=== PATIENT | female | born 1950 | race Caucasian/White ===

== ENCOUNTER 2021-04-24 08:16 | Outpatient (CLI) | payer MEDICARE, MEDICAID | END 2021-04-24 08:17 | disposition home or self-care (01) | LOC: CSHWCC 08:16 | PROVIDERS: ATTEND Nurse Practitioner Family | DX: T81.89XD Other complications of procedures, not elsewhere classified, subsequent encounter (principal); T81.30XD Disruption of wound, unspecified, subsequent encounter; T81.83XD Persistent postprocedural fistula, subsequent encounter; E11.65 Type 2 diabetes mellitus with hyperglycemia; I10 Essential (primary) hypertension; Z85.3 Personal history of malignant neoplasm of breast; Z85.038 Personal history of other malignant neoplasm of large intestine | CPT/HCPCS: 11042; 99203; G0463 ==

== ENCOUNTER 2021-04-27 10:23 | Outpatient (CLI) | payer MEDICARE, MEDICAID | END 2021-04-27 10:24 | disposition home or self-care (01) | LOC: CSHWCC 10:23 | PROVIDERS: ATTEND Nurse Practitioner Family | DX: T81.89XD Other complications of procedures, not elsewhere classified, subsequent encounter (principal); T81.30XD Disruption of wound, unspecified, subsequent encounter; E11.65 Type 2 diabetes mellitus with hyperglycemia; I10 Essential (primary) hypertension; Z85.038 Personal history of other malignant neoplasm of large intestine; Z85.3 Personal history of malignant neoplasm of breast ==

== ENCOUNTER 2021-05-02 10:12 | Outpatient (CLI) | payer MEDICARE, MEDICAID | END 2021-05-02 10:13 | disposition home or self-care (01) | LOC: CSHWCC 10:12 | PROVIDERS: ATTEND Nurse Practitioner Family | DX: T81.89XD Other complications of procedures, not elsewhere classified, subsequent encounter (principal) ==

== ENCOUNTER 2021-05-04 11:22 | Outpatient (CLI) | payer MEDICARE, MEDICAID | END 2021-05-04 11:23 | disposition home or self-care (01) | LOC: CSHWCC 11:22 | PROVIDERS: ATTEND Nurse Practitioner Family | DX: T81.89XD Other complications of procedures, not elsewhere classified, subsequent encounter (principal) ==

== ENCOUNTER 2021-05-08 14:35 | Outpatient (CLI) | payer MEDICARE, MEDICAID | END 2021-05-08 14:36 | disposition home or self-care (01) | LOC: CSHWCC 14:35 | PROVIDERS: ATTEND Nurse Practitioner Family | DX: T81.89XD Other complications of procedures, not elsewhere classified, subsequent encounter (principal) | CPT/HCPCS: 97139; 97605; G0463; 99212 ==

== ENCOUNTER 2021-05-14 10:22 | Outpatient (CLI) | payer MEDICARE, MEDICAID | END 2021-05-14 10:23 | disposition home or self-care (01) | LOC: CSHWCC 10:22 | PROVIDERS: ATTEND Nurse Practitioner Family | DX: T81.89XD Other complications of procedures, not elsewhere classified, subsequent encounter (principal) | CPT/HCPCS: 11042; 97605 ==

== ENCOUNTER 2021-05-17 14:59 | Outpatient (CLI) | payer MEDICARE, MEDICAID | END 2021-05-17 15:00 | disposition home or self-care (01) | LOC: CSHWCC 14:59 | PROVIDERS: ATTEND Nurse Practitioner Family | DX: T81.89XD Other complications of procedures, not elsewhere classified, subsequent encounter (principal) | CPT/HCPCS: 97605 ==

== ENCOUNTER 2021-05-21 14:58 | Outpatient (CLI) | payer MEDICARE, MEDICAID | END 2021-05-21 14:59 | disposition home or self-care (01) | LOC: CSHWCC 14:58 | PROVIDERS: ATTEND Nurse Practitioner Family | DX: T81.89XA Other complications of procedures, not elsewhere classified, initial encounter (principal) ==

== ENCOUNTER 2021-05-24 10:43 | Outpatient (CLI) | payer MEDICARE, MEDICAID | END 2021-05-24 10:44 | disposition home or self-care (01) | LOC: CSHWCC 10:43 | PROVIDERS: ATTEND Nurse Practitioner Family | DX: T81.89XA Other complications of procedures, not elsewhere classified, initial encounter (principal) | CPT/HCPCS: 97605 ==

== ENCOUNTER 2021-05-29 13:07 | Outpatient (CLI) | payer MEDICARE, MEDICAID | END 2021-05-29 13:08 | disposition home or self-care (01) | LOC: CSHWCC 13:07 | PROVIDERS: ATTEND Nurse Practitioner Family | DX: T81.89XD Other complications of procedures, not elsewhere classified, subsequent encounter (principal) | CPT/HCPCS: 97605 ==

== ENCOUNTER 2021-06-01 09:00 | Outpatient (CLI) | payer MEDICARE, MEDICAID | END 2021-06-01 09:01 | disposition home or self-care (01) | LOC: CSHWCC 09:00 | PROVIDERS: ATTEND Nurse Practitioner Family | DX: T81.89XD Other complications of procedures, not elsewhere classified, subsequent encounter (principal) | CPT/HCPCS: 97605 ==

== ENCOUNTER 2021-06-05 12:50 | Outpatient (CLI) | payer MEDICARE, MEDICAID | END 2021-06-05 12:51 | disposition home or self-care (01) | LOC: CSHWCC 12:50 | PROVIDERS: ATTEND Nurse Practitioner Family | DX: T81.89XD Other complications of procedures, not elsewhere classified, subsequent encounter (principal) | CPT/HCPCS: 97139; 97605; G0463; 99213 ==

== ENCOUNTER 2021-06-07 08:53 | Outpatient (CLI) | payer MEDICARE, MEDICAID | END 2021-06-07 08:54 | disposition home or self-care (01) | LOC: CSHWCC 08:53 | PROVIDERS: ATTEND Nurse Practitioner Family | DX: T81.89XD Other complications of procedures, not elsewhere classified, subsequent encounter (principal) | CPT/HCPCS: 97605 ==

== ENCOUNTER 2021-08-21 13:31 | Outpatient (CLI) | payer MEDICARE, OTHER | END 2021-08-21 13:32 | disposition home or self-care (01) | LOC: CSHWCC 13:31 | PROVIDERS: ATTEND Nurse Practitioner Family | DX: T81.89XD Other complications of procedures, not elsewhere classified, subsequent encounter (principal) | CPT/HCPCS: 17250 ==

== ENCOUNTER 2021-09-18 12:49 | Outpatient (CLI) | payer MEDICARE, OTHER | END 2021-09-18 12:50 | disposition home or self-care (01) | LOC: CSHWCC 12:49 | PROVIDERS: ATTEND Nurse Practitioner Family | DX: T81.89XD Other complications of procedures, not elsewhere classified, subsequent encounter (principal) | CPT/HCPCS: 97139; G0463; 99213 ==

== ENCOUNTER 2021-10-23 12:48 | Outpatient (CLI) | payer MEDICARE, MEDICAID | END 2021-10-23 12:49 | disposition home or self-care (01) | LOC: CSHWCC 12:48 | PROVIDERS: ATTEND Nurse Practitioner Family | DX: T81.89XD Other complications of procedures, not elsewhere classified, subsequent encounter (principal) ==

== ENCOUNTER 2021-11-20 10:24 | Outpatient (CLI) | payer MEDICARE | END 2021-11-20 10:25 | disposition home or self-care (01) | LOC: CSHWCC 10:24 | PROVIDERS: ATTEND Nurse Practitioner Family | DX: T81.89XD Other complications of procedures, not elsewhere classified, subsequent encounter (principal) ==

== ENCOUNTER 2021-12-18 09:58 | Outpatient (CLI) | payer MEDICARE | END 2021-12-18 09:59 | disposition home or self-care (01) | LOC: CSHWCC 09:58 | PROVIDERS: ATTEND Preventive Medicine Undersea and Hyperbaric Medicine | DX: T81.89XD Other complications of procedures, not elsewhere classified, subsequent encounter (principal) | CPT/HCPCS: 99213; G0463 ==

== ENCOUNTER 2022-01-15 09:57 | Outpatient (CLI) | payer MEDICARE, OTHER | END 2022-01-15 09:58 | disposition home or self-care (01) | LOC: CSHWCC 09:57 | PROVIDERS: ATTEND Preventive Medicine Undersea and Hyperbaric Medicine | DX: T81.89XD Other complications of procedures, not elsewhere classified, subsequent encounter (principal) | CPT/HCPCS: 97139; 97597; G0463; 99213 ==

== ENCOUNTER 2022-01-29 12:50 | Outpatient (CLI) | payer MEDICARE, OTHER | END 2022-01-29 12:51 | disposition home or self-care (01) | LOC: CSHWCC 12:50 | PROVIDERS: ATTEND Nurse Practitioner Family | DX: T81.89XD Other complications of procedures, not elsewhere classified, subsequent encounter (principal) | CPT/HCPCS: 99213; G0463 ==

== ENCOUNTER 2022-02-19 12:57 | Outpatient (CLI) | payer OTHER, MEDICAID | END 2022-02-19 12:58 | disposition home or self-care (01) | LOC: CSHWCC 12:57 | PROVIDERS: ATTEND Nurse Practitioner Family | DX: T81.89XD Other complications of procedures, not elsewhere classified, subsequent encounter (principal) | CPT/HCPCS: 99213; G0463 ==

== ENCOUNTER 2022-03-27 11:13 | Outpatient (CLI) | payer OTHER, MEDICAID | END 2022-03-27 11:14 | disposition home or self-care (01) | LOC: CSHWCC 11:13 | PROVIDERS: ATTEND Nurse Practitioner Family | DX: T81.89XD Other complications of procedures, not elsewhere classified, subsequent encounter (principal) | CPT/HCPCS: 99213; G0463 ==

== ENCOUNTER 2022-04-24 10:02 | Outpatient (CLI) | payer OTHER, MEDICAID | END 2022-04-24 10:03 | disposition home or self-care (01) | LOC: CSHWCC 10:02 | PROVIDERS: ATTEND Nurse Practitioner Family | DX: T81.89XD Other complications of procedures, not elsewhere classified, subsequent encounter (principal) | CPT/HCPCS: 99213; G0463 ==

== ENCOUNTER 2022-05-22 10:52 | Outpatient (CLI) | payer OTHER, MEDICAID | END 2022-05-22 10:53 | disposition home or self-care (01) | LOC: CSHWCC 10:52 | PROVIDERS: ATTEND Nurse Practitioner Family | DX: T81.89XD Other complications of procedures, not elsewhere classified, subsequent encounter (principal) ==

== ENCOUNTER 2022-06-20 12:59 | Outpatient (CLI) | payer OTHER, MEDICAID | END 2022-06-20 13:00 | disposition home or self-care (01) | LOC: CSHWCC 12:59 | PROVIDERS: ATTEND Nurse Practitioner Family | DX: T81.89XD Other complications of procedures, not elsewhere classified, subsequent encounter (principal) | CPT/HCPCS: 97139; G0463; 99213 ==

== ENCOUNTER 2022-07-18 10:56 | Outpatient (CLI) | payer OTHER, MEDICAID | END 2022-07-18 10:57 | disposition home or self-care (01) | LOC: CSHWCC 10:56 | PROVIDERS: ATTEND Nurse Practitioner Family | DX: T81.89XD Other complications of procedures, not elsewhere classified, subsequent encounter (principal) ==

== ENCOUNTER 2022-12-03 11:08 | Outpatient (CLI) | payer OTHER, MEDICAID | END 2022-12-03 11:09 | disposition home or self-care (01) | LOC: CSHWCC 11:08 | PROVIDERS: ATTEND Nurse Practitioner Family | DX: T81.89XD Other complications of procedures, not elsewhere classified, subsequent encounter (principal) | CPT/HCPCS: 97139; G0463; 99213 ==

== ENCOUNTER 2023-01-24 10:53 | Outpatient (CLI) | payer OTHER, MEDICAID | END 2023-01-24 10:54 | disposition home or self-care (01) | LOC: CSHWCC 10:53 | PROVIDERS: ATTEND Preventive Medicine Undersea and Hyperbaric Medicine | DX: T81.89XD Other complications of procedures, not elsewhere classified, subsequent encounter (principal) | CPT/HCPCS: 97602; G0463; 99212 ==

== ENCOUNTER 2023-02-20 13:09 | Outpatient (CLI) | payer OTHER, MEDICAID | END 2023-02-20 13:10 | disposition home or self-care (01) | LOC: CSHWCC 13:09 | PROVIDERS: ATTEND Physician Assistant | DX: T81.89XD Other complications of procedures, not elsewhere classified, subsequent encounter (principal) | CPT/HCPCS: 99213; G0463 ==

== ENCOUNTER 2023-05-07 15:03 | Outpatient (CLI) | payer OTHER, MEDICAID | END 2023-05-07 15:04 | disposition home or self-care (01) | LOC: CSHWCC 15:03 | PROVIDERS: ATTEND Physician Assistant | DX: T81.89XD Other complications of procedures, not elsewhere classified, subsequent encounter (principal) | CPT/HCPCS: 99212; G0463 ==

== ENCOUNTER 2023-05-22 15:30 | Outpatient (CLI) | payer OTHER, MEDICAID | END 2023-05-22 15:31 | disposition home or self-care (01) | LOC: CSHWCC 15:30 | PROVIDERS: ATTEND Nurse Practitioner Family | DX: T81.89XD Other complications of procedures, not elsewhere classified, subsequent encounter (principal) | CPT/HCPCS: 11042 ==

== ENCOUNTER 2023-05-29 11:45 | Outpatient (CLI) | payer OTHER, MEDICAID | END 2023-05-29 11:46 | disposition home or self-care (01) | LOC: CSHWCC 11:45 | PROVIDERS: ATTEND Nurse Practitioner Family | DX: T81.31XD Disruption of external operation (surgical) wound, not elsewhere classified, subsequent encounter (principal) | CPT/HCPCS: 11042 ==

== ENCOUNTER 2023-08-14 14:10 | Outpatient (CLI) | payer OTHER, MEDICAID | END 2023-08-14 14:11 | disposition home or self-care (01) | LOC: CSHWCC 14:10 | PROVIDERS: ATTEND Nurse Practitioner Family | DX: T81.31XD Disruption of external operation (surgical) wound, not elsewhere classified, subsequent encounter (principal) | CPT/HCPCS: 97597 ==

== ENCOUNTER 2023-10-10 16:00 | Outpatient (CLI) | payer OTHER, MEDICARE | END 2023-10-10 16:01 | disposition home or self-care (01) | LOC: CSHWCC 16:00 | PROVIDERS: ATTEND Nurse Practitioner Family | DX: T81.31XD Disruption of external operation (surgical) wound, not elsewhere classified, subsequent encounter (principal) | CPT/HCPCS: 11042 ==

== ENCOUNTER 2023-11-27 14:29 | Outpatient (CLI) | payer OTHER | END 2023-11-27 14:30 | disposition home or self-care (01) | LOC: CSHWCC 14:29 | PROVIDERS: ATTEND Nurse Practitioner Family | DX: T81.31XD Disruption of external operation (surgical) wound, not elsewhere classified, subsequent encounter (principal) | CPT/HCPCS: 99213; G0463 ==